=== PATIENT | female | born 1945 | race Caucasian/White ===

== ENCOUNTER 2024-12-05 10:15 | Inpatient (IN) | payer OTHER ==
[~2024-12-05] VITALS: Ht 182.9 cm; Wt 86.2 kg
[2024-12-05] MEDS ORDERED: VASOTEC20 MG PO (11:27)
[2024-12-05 13:01] LABS: COVID-19 AG NEGATIVE (NEGATIVE)
[2024-12-13] MEDS ORDERED: ENALAPRILAT DIHYDRATE 1.25 MG/ML VIAL IV PRN (07:15)
[2024-12-13] MEDS ORDERED: 0.9 % SODIUM CHLORIDE 1,000 ML IV SCH (07:15)
[2024-12-13] MEDS ORDERED: PROMETHAZINE HCL 50 MG/ML AMPUL IM PRN (07:15)
[2024-12-13] MEDS ORDERED: MEDROLPACK PO (07:18)
[2024-12-13] MEDS ORDERED: PERCOCET 5-3251 EACH PO (07:18)
[2024-12-13] MEDS ORDERED: ZOFRAN8 MG PO (07:19)
[2024-12-13] MEDS ORDERED: COLACE100 MG PO (07:19)
[2024-12-13] MEDS ORDERED: AMOX-CLAV 875-1 EACH PO (07:19)
[2024-12-13] MEDS ORDERED: GABAPENTIN100 M2 PO (07:20)
[2024-12-13] MEDS ORDERED: NEURONTIN800 MG PO (07:20)
[2024-12-13] MEDS ORDERED: VANCOMYCIN HCL 1,000 MG VIAL IR ONE (08:45)
[2024-12-13] MEDS ORDERED: CEFAZOLIN SODIUM 1,000 MG in 0.9 % SODIUM CHLORIDE 50 ML IV SCH (09:00)
[2024-12-13] MEDS ORDERED: METHYLPREDNISOLONE SOD SUCC 125 MG VIAL IV SCH (09:00)
[2024-12-13] MEDS ORDERED: MORPHINE SULFATE 4 MG/ML CARTRIDGE IV SCH (09:00)
[2024-12-13] MEDS ORDERED: DOCUSATE SODIUM 100MG CAP PO SCH (09:00)
[2024-12-13] MEDS ORDERED: VANCOMYCIN HCL 1,000 MG VIAL IV SCH (09:00)
[2024-12-13] MEDS ORDERED: TAMSULOSIN HCL 0.4 MG CAP PO SCH (09:00)
[2024-12-13] MEDS ORDERED: METHYLPREDNISOLONE ACETATE 80 MG/ML VIAL IM ONE (09:30)
[2024-12-13 14:56] VITALS: O2SAT 98
[2024-12-13 16:30] VITALS: O2SAT 99
[2024-12-13 17:54] VITALS: BP 115/68; O2SAT 99
[2024-12-13 19:37] VITALS: O2SAT 99
[2024-12-13] MEDS ORDERED: ACETAMINOPHEN 500 MG GEL..CAP PO SCH (20:00)
[2024-12-13] MEDS ORDERED: GABAPENTIN 800 MG TABLET PO SCH (21:00)
[2024-12-14] MEDS ORDERED: SODIUM CHLORIDE 0.45 % 1,000 ML IV SCH
[2024-12-14 00:57] VITALS: O2SAT 97
[2024-12-14 01:20] VITALS: BP 122/76; BP 128/66; O2SAT 97; O2SAT 98
[2024-12-14 05:08] LABS: BUN CREA RATIO 14.0 (7.0-25.0); CREATININE SERUM 0.98 mg/dL (0.55-1.02); GFR 54.75; GLUCOSE FASTING 162.0 mg/dL (65-100); OSMOLALITY SERUM 295.0 MOSM/KG (275-295)
[2024-12-14 05:17] LABS: BASO % 0.1 % (0.1-1.2); EOS # 0.00 (0.04-0.54); EOS % 0.0 % (0.7-7.0); LYMPH # 1.35 (1.18-3.74); LYMPH % 10.3 % (19.3-53.1); MEAN PLATELET VOLUME 11.90 fl (9.4-12.4); MONO # 0.34 (0.24-0.82); MONO % 2.6 % (4.7-12.5); NEUT # 11.33 (1.56-6.13); NEUT % 86.6 % (34.0-71.1); RED CELL DISTRIBUTION WIDTH 12.7 % (11.6-14.4)
[2024-12-14 05:41] VITALS: O2SAT 97
[2024-12-14] MEDS ORDERED: OxyCODONE HCL 5 MG TABLET (ROXICODONE) PO PRN (06:01)
[2024-12-14 08:00] VITALS: BP 144/54; O2SAT 98
[2024-12-14 09:21] VITALS: O2SAT 99
== END 2024-12-14 14:34 | disposition home or self-care (01) | DRG 497 ==
LOC: O/R 12-13 06:00 → SURH 12-13 07:00
PROVIDERS: ADMIT Orthopaedic Surgery Orthopaedic Surgery of the Spine; ATTEND Orthopaedic Surgery Orthopaedic Surgery of the Spine
PROC: 0QB10ZZ Excision of Sacrum, Open Approach (ICD-10-PCS; 2024-12-13)
PROC: 0QP005Z Removal of External Fixation Device from Lumbar Vertebra, Open Approach (ICD-10-PCS; 2024-12-13)
PROC: 4A12X4Z Monitoring of Cardiac Electrical Activity, External Approach (ICD-10-PCS; 2024-12-13)
PROC: 0QB00ZZ Excision of Lumbar Vertebra, Open Approach (ICD-10-PCS; principal; 2024-12-13 07:00)
DX: M51.27 Other intervertebral disc displacement, lumbosacral region (principal); M54.17 Radiculopathy, lumbosacral region; Z47.89 Encounter for other orthopedic aftercare